=== PATIENT | male | born 1955 | race Caucasian/White ===

== ENCOUNTER → 2020-05-31 | Day surgery (SDC) | payer BC, OTHER ==
[2020-05-28 10:27] LABS: BASOPHILS # (AUTO) 0.1 (0.0-0.1); BASOPHILS % 0.9 % (0.0-1.0); EOSINOPHILS # (AUTO) 0.4 (0.0-0.4); EOSINOPHILS % 4.6 % (0.0-6.0); HEMATOCRIT 40.7 % (38.2-49.6); HEMOGLOBIN 13.2 g/dL (14.0-18.0); LYMPHOCYTES # (AUTO) 1.8 (1.0-3.2); LYMPHOCYTES % 22.4 % (18.0-39.1); MEAN CORPUSCULAR HEMOGLOBIN 28.8 pg (28-32); MEAN CORPUSCULAR HGB CONC 32.4 g/dL (31-35); MEAN CORPUSCULAR VOLUME 88.9 fL (81-99); MONOCYTES # (AUTO) 0.8 (0.2-0.8); MONOCYTES % 9.9 % (4.4-11.3); NEUTROPHILS # (AUTO) 5.1 (2.1-6.9); NEUTROPHILS % 61.7 % (38.7-80.0); PLATELET COUNT 248 x10e3/uL (140-360); RED BLOOD COUNT 4.58 x10e6/uL (4.3-5.7); RED CELL DISTRIBUTION WIDTH 14.3 % (11.7-14.4)
--- NOTE | 2020-05-28 11:24 | Diagnostic Imaging Report ---
EXAMINATION: CHEST 2 VIEWS INDICATION: Pre-operative COMPARISON: None FINDINGS: LINES/TUBES:None LUNGS:The lungs are mildly hyperinflated. No focal consolidation or pulmonary edema. PLEURA:No pleural effusion or pneumothorax. MEDIASTINUM:The cardiomediastinal silhouette appears normal in size and shape. BONES/SOFT TISSUES:No acute osseous injury. ABDOMEN:No free air under the diaphragm. IMPRESSION: No focal pneumonia or pulmonary edema. Signed by: Genie Garcia MD on 05/28/2020 11:21 AM
[~2020-05-31] MED LIST: CEFTRIAXONE SOD 1 GM/NS 50 ML 50 ML IV ONE; DEXAMETHASONE SOD PHOS INJ 4 MG/ML VIAL ONE; FENTANYL CITRATE/PF 100MCG/2 ML INJ ONE; IOPAMIDOL 300MG/ML 50ML INFUS..BTL IV ONE; LIDOCAINE HCL 2% LOCAL INJ 5 ML SDV VIAL INJ ONE; LISINOPRIL10 MG PO; METOPROLOL SUCC50 MG PO; MIDAZOLAM HCL 2 MG/2 ML VIAL ONE; OMEGA 3 1,0001 EACH PO; ONDANSETRON HCL INJ 2MG/ML 2ML 2 MG/ML VIAL ONE; PROPOFOL IV EMULSION 10 MG/ML 20 ML VIAL ONE; SCOPOLAMINE 1.5 MG PATCH ONE; SEVOFLURANE INHAL SOLN 250 ML PEN BTL ONE
[2020-05-31 09:15] VITALS: BP 148/88
--- NOTE | 2020-06-08 02:54 | Operative Report ---
DATE OF PROCEDURE: 05/31/2020 SURGEON: Miguel A Ramírez MD PREOPERATIVE DIAGNOSIS: Left ureteral stone. POSTOPERATIVE DIAGNOSIS: Left ureteral obstruction due in part to left ureteral stone. OPERATIVE PROCEDURES PERFORMED: 1. Cystoscopy. 2. Left retrograde pyelogram. 3. Left ureteroscopy. ANESTHESIA: General anesthesia. ESTIMATED BLOOD LOSS: Minimal. INDICATIONS: Mr. Gino Galeana is a 65-year-old gentleman with intermittent left flank pain was found on scan to have a stone in his proximal ureter. He now presents for definitive surgical management of this problem. PROCEDURE IN DETAIL: The patient was brought to the operative room, placed in supine position. After initiation of general anesthesia, was prepped and draped in the usual sterile fashion. Cystourethroscopy was performed using a 21-Gambian cystoscope. The anterior and posterior urethra were noted to be normal. The prostate revealed mild lateral lobe hyperplasia. Bladder was entered without difficulty. Upon entrance into the bladder, the ureteral orifices were in normal anatomical position and produced largely clear efflux. There were no mucosal lesions identified. Using a 5-Gambian open-ended catheter left retrograde pyelogram was performed. This revealed that the distal and mid ureter was completely normal. However at the level of the stone the ureter appeared to come to a complete end. No contrast material was seen to go proximal to the stone. A wire was placed up to this location under fluoroscopic guidance and a ureteral access sheath was placed. Flexible ureteroscopy was then performed. The ureteroscope was advanced up to that position without difficulty. Complete scarring of the ureteral lumen was noted due to some calcifications which were seen. Even with ureteroscope in place, no contrast material could be demonstrated to go past the obstruction. Multiple attempts were also placed to try to find a identified. The procedure was therefore stopped and the ureteroscope and ureteral access sheath were removed. The patient was returned to supine position and anesthesia was reversed. He was transferred to a bed and taken to the postanesthesia care unit in good condition. Of note, the needle and instrument count were correct at the conclusion of the case. MD SASKIA PadillaW/LUPE /[id number]
== END | disposition home or self-care (01) ==
LOC: OR 05:40
PROVIDERS: ATTEND Urology
DX: N20.1 Calculus of ureter (principal); I10 Essential (primary) hypertension; Z01.810 Encounter for preprocedural cardiovascular examination; Z01.812 Encounter for preprocedural laboratory examination; Z01.818 Encounter for other preprocedural examination; Z11.59 Encounter for screening for other viral diseases; Z68.31 Body mass index [BMI] 31.0-31.9, adult
CPT/HCPCS: 36415; 52351; 71046; 74420; 85025; 88300; 93005; C1758; C1766; J0696; J1100; J2001; J2250; J2405; J2704; J3010; Q9967; U0002

== ENCOUNTER → 2020-06-06 | Outpatient (CLI) | payer BC ==
[~2020-06-06] MED LIST changes: -CEFTRIAXONE SOD 1 GM/NS 50 ML 50 ML IV ONE; -DEXAMETHASONE SOD PHOS INJ 4 MG/ML VIAL ONE; -FENTANYL CITRATE/PF 100MCG/2 ML INJ ONE; -IOPAMIDOL 300MG/ML 50ML INFUS..BTL IV ONE; -LIDOCAINE HCL 2% LOCAL INJ 5 ML SDV VIAL INJ ONE; -MIDAZOLAM HCL 2 MG/2 ML VIAL ONE; -ONDANSETRON HCL INJ 2MG/ML 2ML 2 MG/ML VIAL ONE; -PROPOFOL IV EMULSION 10 MG/ML 20 ML VIAL ONE; -SCOPOLAMINE 1.5 MG PATCH ONE; -SEVOFLURANE INHAL SOLN 250 ML PEN BTL ONE
--- NOTE | 2020-06-06 19:33 | Diagnostic Imaging Report ---
Renal Scan Reason for exam: Ureteric stricture; crossing vessel Additional clinical information: Reported that renal ultrasound identified left kidney 2x the normal size. This report nor any images are available for review. Radiopharmaceutical: Tc-99m MAG3 11 mCi IV LAC Report: After administration of the radiopharmaceutical, dynamic images of the kidneys were obtained through 40 minutes. LEFT KIDNEY: No perfused renal parenchyma is identified in the left renal bed or elsewhere in the left abdomen. No accumulation of tracer is seen in the left renal bed or left abdomen to suggest functioning renal parenchyma. RIGHT KIDNEY: Perfusion is prompt. The kidney has a reniform shape but is overall slightly reduced in size. Extraction of tracer from the blood pool is normal. Clearance of tracer from the renal parenchyma begins promptly but is not quite complete by the end of the study. The pelvicaliceal system is not dilated. No significant increase in pooling of is seen within the pelvicaliceal system. Drainage of tracer from the pelvicaliceal study is adequate. No stasis of tracer is seen in the right ureter. DIFFERENTIAL RENAL FUNCTION: Left kidney 0% and right kidney 100% (normal 43-57%). Impression: 1. No perfused or functioning renal parenchyma is identified in the left renal bed/left abdomen. The left kidney does not contribute to total renal function. 2. The right kidney shows evidence of mild medical renal disease. No hydronephrosis is present. No obstruction is suspected. Signed by: Dr. Charu Saldaña M.D. on 06/06/2020 7:30 PM
== END ==
LOC: NM 11:06
PROVIDERS: ATTEND Urology
DX: N13.5 Crossing vessel and stricture of ureter without hydronephrosis (principal)
CPT/HCPCS: 78707; A9562